=== PATIENT | female | born 1985 ===

== ENCOUNTER 2018-01-26 23:49 | Emergency (ER) | payer OTHER ==
[2018-01-26 23:50] VITALS: BMI 30.5
[2018-01-27 00:10] VITALS: TEMP 98.6; O2SAT 100
[2018-01-27] MEDS ORDERED: Sodium Chloride 0.9% 1,000 ML IV STA (00:44)
--- NOTE | 2018-01-27 00:49 | ED PDOC ---
HPI: Abdomen Time Seen by Provider: 01/27/18 00:12 Chief Complaint (Nursing): Abdominal Pain Chief Complaint (Provider): abdominal pain History Per: Patient History/Exam Limitations: no limitations Onset/Duration Of Symptoms: Days (2) Current Symptoms Are (Timing): Still Present Location Of Pain/Discomfort: RLQ, Suprapubic Quality Of Discomfort: Burning Associated Symptoms: Back Pain, Urinary Symptoms Additional Complaint(s): 32 y/o female presents for evaluation of lower abdominal pain and back pain x 2 days. Associated dysuria x 1 day. Patient evaluated by her PMD and prescribed urinary pain reliever and called in antibiotic to her pharmacy but has not yet picked it up; states pain worsened tonight, prompting ED visit. Denies fever, nausea/vomiting, chest pain, shortness of breath, palpitations, changes in bowel movements, vaginal bleeding/discharge Past Medical History Reviewed: Historical Data, Nursing Documentation, Vital Signs Vital Signs: Last Vital Signs Temp 98.6 F 01/27/18 00:07 Pulse 76 01/27/18 04:31 Resp 18 01/27/18 04:31 BP 110/68 01/27/18 04:31 Pulse Ox 100 01/27/18 04:31 - Medical History PMH: Gall Bladder Disease Denies: Chronic Kidney Disease - Surgical History Surgical History: Cholecystectomy - Family History Family History: States: No Known Family Hx - Immunization History Hx Tetanus Toxoid Vaccination: No Hx Influenza Vaccination: No Hx Pneumococcal Vaccination: No - Home Medications Home Medications: Ambulatory Orders Medication Instructions Recorded Ciprofloxacin HCl [Cipro] 500 mg PO BID #14 tab 01/27/18 Ibuprofen [Motrin Tab] 1 tab PO Q6 PRN #20 tab 01/27/18 - Allergies Allergies/Adverse Reactions: Allergies Allergy/AdvReac Type Severity Reaction Status Date / Time No Known Allergies Allergy Verified 01/27/18 00:07 Review of Systems ROS Statement: Except As Marked, All Systems Reviewed And Found Negative Gastrointestinal: Positive for: Abdominal Pain Genitourinary Female: Positive for: Dysuria, Frequency Musculoskeletal: Positive for: Back Pain Physical Exam - Reviewed Nursing Documentation Reviewed: Yes Vital Signs Reviewed: Yes - Physical Exam Appears: Positive for: Well, Non-toxic, Uncomfortable Head Exam: Positive for: ATRAUMATIC, NORMAL INSPECTION, NORMOCEPHALIC Skin: Positive for: Normal Color Eye Exam: Positive for: Normal appearance ENT: Positive for: Normal ENT Inspection Cardiovascular/Chest: Positive for: Regular Rate, Rhythm Respiratory: Positive for: Normal Breath Sounds Gastrointestinal/Abdominal: Positive for: Bowel Sounds, Soft, Tenderness ( suprapubic, rlq, right flank) Back: Positive for: L CVA Tenderness, R CVA Tenderness Extremity: Positive for: Normal ROM Neurologic/Psych: Positive for: Alert, Oriented - Laboratory Results Result Diagrams: 01/27/18 01:05 01/27/18 01:05 - ECG O2 Sat by Pulse Oximetry: 100 - Progress ED Course And Treament: labs, urine, IV fluids, IV toradol, CT renal protocol EXAM: CT Abdomen and Pelvis Without Intravenous Contrast CLINICAL HISTORY: 32 years old, female; Pain; Abdominal pain; Flank; Right; Prior surgery; Surgery date: 6+ months; Surgery type: ; Additional info: Right flank pain, dysuria TECHNIQUE: Axial computed tomography images of the abdomen and pelvis without intravenous contrast. All CT scans at this facility use one or more dose reduction techniques, viz.: automated exposure control; ma/kV adjustment per patient size (including targeted exams where dose is matched to indication; i.e. head); or iterative reconstruction technique. Coronal and sagittal reformatted images were created and reviewed. COMPARISON: No relevant prior studies available. FINDINGS: Lung bases: Unremarkable. No mass. No consolidation. ABDOMEN: Liver: The liver is within normal limits for this noncontrast study. Gallbladder and bile ducts: There has been a cholecystectomy. No ductal dilation. Pancreas: Unremarkable. No ductal dilation. Spleen: Unremarkable. No splenomegaly. Adrenals: Unremarkable. No mass. Kidneys and ureters: There is mild right hydronephrosis and hydroureter with mild perinephritic and periureteral inflammatory stranding. This could be secondary to an infectious/ inflammatory process. No definite distal ureteral stone is identified. Recently passed stone or nonopaque distal ureteral stone not excluded. Tiny 1 mm calcifications in the right pelvis likely secondary to phleboliths. The left kidney is normal. Stomach and bowel: Unremarkable. No obstruction. No mucosal thickening. There is no wall thickening or pericolonic stranding to suggest colitis. PELVIS: Appendix: A normal appendix is identified. Bladder: Partially decompressed thickwalled bladder. No stones. Reproductive: Unremarkable as visualized. ABDOMEN and PELVIS: Intraperitoneal space: Unremarkable. No free air. No significant fluid collection. Bones/joints: No acute fracture. No dislocation. Soft tissues: Bilateral breast implants partially imaged. Vasculature: Unremarkable. No abdominal aortic aneurysm. Lymph nodes: Unremarkable. No enlarged lymph nodes. IMPRESSION: Mild right hydroureteronephrosis with mild inflammatory changes suggesting infectious/inflammatory process. No evidence of distal ureteral stone. Recently passed stone or nonopaque distal ureteral stone not excluded. Decompressed thickwalled bladder. Findings could be secondary to nondistention or cystitis. Clinical correlation recommended. Cholecystectomy On re-eval, patient resting comfortably; states pain improved. Patient educated on findings, IV rocephin dose given in ED Patient discharged with rx Cipro, Ibuprofen Advised follow up PMD 2-3 days. FLuids. Return precautions given Disposition - Clinical Impression Clinical Impression: Pyelonephritis - Patient ED Disposition Is Patient to be Admitted: No Counseled Patient/Family Regarding: Studies Performed, Diagnosis, Need For Followup, Rx Given - Disposition Referrals: Natalee Renee MD [Primary Care Provider] - Disposition: Routine/Home Disposition Time: 04:34 Condition: IMPROVED Prescriptions: Ciprofloxacin HCl [Cipro] 500 mg PO BID #14 tab Ibuprofen [Motrin Tab] 1 tab PO Q6 PRN #20 tab PRN Reason: Pain, Moderate (4-7) Instructions: Kidney Infection Forms: [facility] ([place])
[2018-01-27 01:29] LABS: BASO # 0.1 K/uL (0.0-0.2); BASO % 0.7 % (0.0-2.0); EOS # 0.1 K/uL (0.0-0.7); EOS % 0.9 % (0.0-4.0); HEMOGLOBIN 12.6 g/dL (12.0-16.0); LYMPH # 2.7 K/uL (1.0-4.3); MEAN CELL VOLUME 88.1 fl (81.0-99.0); MEAN CORPUSCULAR HEMOGLOBIN 29.9 pg (27.0-31.0); MEAN CORPUSCULAR HGB CONC 33.9 g/dL (33.0-37.0); MEAN PLATELET VOLUME 6.9 fl (7.2-11.7); MONO # 0.9 K/uL (0.0-0.8); MONO % 5.4 % (0.0-10.0); NEUT # 11.9 K/uL (1.8-7.0); RBC 4.23 Mil/uL (3.80-5.20); WHITE BLOOD COUNT 15.7 K/uL (4.8-10.8)
[2018-01-27 01:36] LABS: SQUAMOUS EPITHIAL 2 /hpf (0-5); URINE BILIRUBIN NEGATIVE (NEGATIVE); URINE BLOOD MODERATE (NEGATIVE); URINE CLARITY SLIGHTY-CLOUDY (Clear); URINE COLOR STRAW (YELLOW); URINE GLUCOSE (UA) NEG (Normal); URINE LEUKOCYTE ESTERASE LARGE Leu/uL (Negative); URINE PROTEIN NEGATIVE (NEGATIVE); URINE UROBILINOGEN 0.2-1.0 mg/dL (0.2-1.0)
[2018-01-27 01:39] LABS: ALB/GLOB RATIO 1.3 (1.0-2.1); ALBUMIN 4.7 g/dL (3.5-5.0); ALT/SGPT 40 U/L (9-52); AST/SGOT 36 U/L (14-36); BLOOD UREA NITROGEN 13 mg/dl (7-17); CALCIUM 9.7 mg/dL (8.4-10.2); GFR AFRICAN-AMERICAN > 60; GFR NON-AFRICAN AMERICAN > 60
--- NOTE | 2018-01-27 02:39 | CT ---
EXAM: CT Abdomen and Pelvis Without Intravenous Contrast CLINICAL HISTORY: 32 years old, female; Pain; Abdominal pain; Flank; Right; Prior surgery; Surgery date: 6+ months; Surgery type: ; Additional info: Right flank pain, dysuria TECHNIQUE: Axial computed tomography images of the abdomen and pelvis without intravenous contrast. All CT scans at this facility use one or more dose reduction techniques, viz.: automated exposure control; ma/kV adjustment per patient size (including targeted exams where dose is matched to indication; i.e. head); or iterative reconstruction technique. Coronal and sagittal reformatted images were created and reviewed. COMPARISON: No relevant prior studies available. FINDINGS: Lung bases: Unremarkable. No mass. No consolidation. ABDOMEN: Liver: The liver is within normal limits for this noncontrast study. Gallbladder and bile ducts: There has been a cholecystectomy. No ductal dilation. Pancreas: Unremarkable. No ductal dilation. Spleen: Unremarkable. No splenomegaly. Adrenals: Unremarkable. No mass. Kidneys and ureters: There is mild right hydronephrosis and hydroureter with mild perinephritic and periureteral inflammatory stranding. This could be secondary to an infectious/inflammatory process. No definite distal ureteral stone is identified. Recently passed stone or nonopaque distal ureteral stone not excluded. Tiny 1 mm calcifications in the right pelvis likely secondary to phleboliths. The left kidney is normal. Stomach and bowel: Unremarkable. No obstruction. No mucosal thickening. There is no wall thickening or pericolonic stranding to suggest colitis. PELVIS: Appendix: A normal appendix is identified. Bladder: Partially decompressed thickwalled bladder. No stones. Reproductive: Unremarkable as visualized. ABDOMEN and PELVIS: Intraperitoneal space: Unremarkable. No free air. No significant fluid collection. Bones/joints: No acute fracture. No dislocation. Soft tissues: Bilateral breast implants partially imaged. Vasculature: Unremarkable. No abdominal aortic aneurysm. Lymph nodes: Unremarkable. No enlarged lymph nodes. IMPRESSION: Mild right hydroureteronephrosis with mild inflammatory changes suggesting infectious/inflammatory process. No evidence of distal ureteral stone. Recently passed stone or nonopaque distal ureteral stone not excluded. Decompressed thickwalled bladder. Findings could be secondary to nondistention or cystitis. Clinical correlation recommended. Cholecystectomy.
[2018-01-27] MEDS ORDERED: cefTRIAXone (Rocephin) 1 gm Inj ONE (03:16)
[2018-01-27 04:33] VITALS: BP 110/68; PULSE 76; RESP 18
== END 2018-01-27 04:48 | disposition home or self-care (01) ==
LOC: H.ER 23:49
DX: N12 Tubulo-interstitial nephritis, not specified as acute or chronic (principal); Z90.49 Acquired absence of other specified parts of digestive tract
CPT/HCPCS: 74176; 80053; 81003; 81025; 83605; 85025; 87040; 87086; 96361; 96365; 96375; 99283; J0696; J1885; J7030